=== PATIENT | male | born 1975 | race Caucasian/White ===

== ENCOUNTER 2024-11-25 06:29 | Inpatient (IN) | payer MEDICAID, OTHER ==
[~2024-11-25] VITALS: Ht 175.3 cm; Wt 69.9 kg
--- NOTE | 2024-11-25 06:54 | ECG ---
[facility] Test Date: 2024-11-25 Test Time: 06:47:31 Pat Name: LYNDSAY PABON Department: ED Room: Gender: M Accounting Director: MALGORZATA : 1975 Requested By: DAYANARA JONAS Order Number: [id number] Reading MD: Measurements Intervals [place] Rate: 92 P: 81 GA: 128 QRS: 59 QRSD: 102 T: 64 QT: 359 QTc: 445 Interpretive Statements Sinus rhythm Please click the below link to view image of tracing.
--- NOTE | 2024-11-25 07:18 | ED.PDOC ---
Musculoskeletal HPI Comments This is a 49 year old male JENNI presenting to the ED with chief complaint of bilateral leg pain. Patient reports that he has been experiencing pain to his bilateral legs for the past 7 years, taking Gabapentin and [place] for pain management, but has been out of [place] for a week. Patient relays that he had passed out at home, prompting him to call 911. Patient states that he has history of DM, but does not take any medication for it. Patient admits to methamphetamine use a week ago. Patient denies any numbness, weakness, fever, chills, SOB, or chest pain. Chief Complaint: Lower Extremity Time Seen by MD: 07:15 Reviewed Notes: Nurses Notes, Medications, Allergies Allergies: Coded Allergies: NO KNOWN ALLERGIES (Unverified , 11/25/24) Information Source: Patient Mode of Arrival: EMS Location: Bilateral Extremity Location: Leg Timing: Other (7 years) Prehospital treatment: None Severity: Moderate Able to Move Extremity: Yes Bear Weight: Limited Pain: Moderate Mechanism: Spontaneous Circumstances: Spontaneous Onset of Symptoms: Spontaneous Symptoms: Swelling, Pain DVT Risk Factors: NONE Last Tetanus: Unknown Past Medical History PAST MEDICAL HISTORY: DM, HTN Past Medical History (Other): Chronic leg pain Surgical History: Denies all surgeries Family History Family History: Reviewed,noncontributory to illness Social History Smoker: Non-Smoker Alcohol: Denies ETOH Use Drugs: Marijuana, Methamphetamine Lives In: Home Constitutional: denies: chills, diaphoresis, fatigue, fever, malaise, sweats, weakness, others EENTM: denies: blurred vision, double vision, ear bleeding, ear discharge, ear drainage, ear pain, ear ringing, eye pain, eye redness, hearing loss, mouth [place] n, mouth swelling, nasal discharge, nose bleeding, nose congestion, nose pain, photophobia, tearing, throat pain, throat swelling, voice changes, others Respiratory: denies: cough, hemoptysis, orthopnea, SOB at rest, shortness of breath, SOB with excertion, stridor, wheezing, others Cardiovascular: denies: chest pain, dizzy spells, diaphoresis, Dyspnea on exertion, edema, irregular heart beat, left arm pain, lightheadedness, palpitations, PND, syncope, others Gastrointestinal: denies: abdomen distended, abdominal pain, blood streaked bowels, constipated, diarrhea, dysphagia, difficulty swallowing, hematemesis, melena, nausea, poor appetite, poor fluid intake, rectal bleeding, rectal pain, vomiting, others Genitourinary: denies: burning, dysuria, flank pain, frequency, hematuria, incontinence, penile discharge, penile sore, pain, testicle pain, testicle swelling, urgency, others Neurological: denies: dizziness, fainting, headache, left sided numbness, left sided weakness, numbness, paresthesia, pre-existing deficit, right sided numbness, right sided weakness, seizure, speech problems, tingling, tremors, weakness, others Musculoskeletal: reports: others (Bilateral leg pain); denies: back pain, gout, joint pain, joint swelling, muscle pain, muscle stiffness, neck pain Integumetry: reports: others (dry cracked skin to bilateral feet and legs); denies: bruises, change in color, change in hair/nails, dryness, laceration, lesions, lumps, rash, wounds Allergic/Immunocompromised: denies: Difficulty Healing, Frequent Infections, Hives, Itching, others Hematologic/Lymphatic: denies: anemia, blood clots, easy bleeding, easy bruising, swollen glands, others Endocrine: denies: excessive hunger, excessive sweating, excessive thirst, excessive urination, flushing, intolerance to cold, intolerance to heat, unexplained weight gain, unexplained weight loss, others Psychiatric: denies: anxiety, bipolar disorder, depression, hopeless, panic disorder, schizophrenia, sleepless, suicidal, others All Other Systems: Reviewed and Negative Physical Exam General Appearance: No Apparent Distress, Normal HEENT: Normal ENT Inspection, Pharynx Normal, TMs Normal Neck: Full Range of Motion, Non-Tender, Normal, Normal Inspection Respiratory: Chest Non-Tender, Lungs Clear, No Accessory Muscle Use, No Respiratory Distress, Normal Breath Sounds Cardiovascular: No Edema, No JVD, No Murmur, No Gallop, Normal Peripheral Pulses, Regular Rate/Rhythm Breast Exam: Deferred Gastrointestinal: No Organomegaly, Non Tender, No Pulsatile Mass, Normal Bowel Sounds, Soft Genitalia: Deferred Pelvic: Deferred Rectal: Deferred Extremities: No calf tenderness, Normal capillary refill, Normal range of motion, Other (2+ pitting edema with dry, cracked skin to the bilateral feet and legs) Musculoskeletal : Apperance: Normal Neurologic: Alert, glueline worker II-XII nml as Tested, No Motor Deficits, Normal Affect, Normal Mood, No Sensory Deficits Cerebellar Function: Normal Reflexes: Normal Skin: Dry, Normal Color, Warm Lymphatic: No Adenopathy Was a procedure done? Was a procedure done?: No Differential Diagnosis EXT Differential Diagnosis: Cellulitis, CHF, Deep Vein Thrombosis, Bursitis X-Ray, Labs, Meds, VS Vital Signs Date Time Temp Pulse Resp B/P (MAP) Pulse Ox O2 Delivery O2 Flow Rate FiO2 11/25/24 12:00 77 18 127/74 (91) 94 11/25/24 10:00 79 14 120/66 (84) 93 11/25/24 09:00 59 16 124/5 (44) 97 11/25/24 08:15 98.0 73 16 156/66 (96) 93 98.0 11/25/24 08:15 Room Air* 0 21 11/25/24 06:47 92 11/25/24 06:29 98.1 101 14 148/89 (108) 100 98.1 Lab Test 11/25/24 12:40 11/25/24 08:00 11/25/24 07:41 Range/Units Urine Opiates Screen Pos NEGATIVE Urine Fentanyl Screen Neg NEGATIVE Urine Barbiturates Screen Neg NEGATIVE Urine Phencyclidine Screen Neg NEGATIVE Urine Amphetamines Screen Pos NEGATIVE Urine Benzodiazepines Screen Neg NEGATIVE Urine Cocaine Screen Neg NEGATIVE Urine Cannabinoids Screen Pos NEGATIVE Urine Color Light-yellow Yellow Urine Clarity Clear Clear Urine pH 6.5 5.0-9.0 Urine Specific [place] 1.012 1.001-1.035 Urine Protein Negative Negative Urine Ketones Negative Negative Urine Blood Negative Negative /uL Urine Nitrite Negative Negative Urine Bilirubin Negative Negative Urine Urobilinogen Normal Negative mg/dL Urine Leukocyte Esterase Negative Negative /uL Urine RBC None seen 0 - 3 /hpf Urine Microscopic WBC < 1 0-3 /HPF Urine Squamous Epithelial Cells None seen <5 /hpf Urine Bacteria None seen None Seen /hpf Urine Glucose Normal Normal mg/dL White Blood Count 6.8 4.4-10.8 10^3/uL Red Blood Count 4.35 L 4.5-5.90 10^6/uL Hemoglobin 13.9 13.5-17.5 g/dL Hematocrit 41.1 41.0-53.0 % Mean Corpuscular Volume 94.6 80.0-100.0 fL Mean Corpuscular Hemoglobin 32.0 28.0-32.0 pg Mean Corpuscular Hemoglobin Concent 33.8 32.0-36.0 g/dL Red Cell Distribution Width 13.0 11.8-14.3 % Platelet Count 265 140-450 10^3/uL Mean Platelet Volume 8.1 6.9-10.8 fL Neutrophils (%) (Auto) 73.0 37.0-80.0 % Lymphocytes (%) (Auto) 17.7 10.0-50.0 % Monocytes (%) (Auto) 8.0 0.0-12.0 % Eosinophils (%) (Auto) 0.6 0.0-7.0 % Basophils (%) (Auto) 0.7 0.0-2.0 % Neutrophils # (Auto) 5.0 1.6-8.6 10 ^3/uL Lymphocytes # (Auto) 1.2 0.4-5.4 10 ^3/uL Monocytes # (Auto) 0.5 0-1.3 10 ^3/uL Eosinophils # (Auto) 0 0-0.8 10 ^3/uL Basophils # (Auto) 0 0-0.2 10 ^3/uL Nucleated Red Blood Cells 0.1 % D-Dimer, Quantitative 0.33 0.0-0.49 mg/L FEU Sodium Level 140 136-145 mmol/L Potassium Level 4.1 3.5-5.1 mmol/L Chloride Level 105 98-107 mmol/L Carbon Dioxide Level 28 20-31 mmol/L Anion Gap 7 5-15 Blood Urea Nitrogen 14 9-23 mg/dL Creatinine 0.78 0.700-1.30 mg/dL Glomerular Filtration Rate Calc 109 >90 mL/min BUN/Creatinine Ratio 17.9 10.0-20.0 Serum Glucose 92 74-106 mg/dL Calcium Level 9.4 8.7-10.4 mg/dL Total Bilirubin 0.2 0.2-1.0 mg/dL Aspartate Amino Transferase (AST) 32 13-40 U/L Alanine Aminotransferase (ALT) 21 7-40 U/L Alkaline Phosphatase 73 46-116 U/L B-Type Natriuretic Peptide 11.21 0-100 pg/mL Total Protein 6.5 5.7-8.2 g/dL Albumin 4.2 3.2-4.8 g/dL X-Ray, Labs, Meds, VS Comment This 49-year-old male presents secondary to a several year history of bilateral lower extremity pain. The patient's physical exam today was significant for dry cracked skin to bilateral feet and legs. His labs were benign. Ultrasound showed no DVT. However, he is also noted to be positive for methamphetamine. I will discharge the patient home with a prescription for clotrimazole topical ointment for his feet and legs. He is asked to follow up with PCP in next 1 2 days return to the ER for any new/worse/worsening symptoms. which she is consistent with the patient's Time of 1ST Reevaluation: 08:13 Reevaluation 1ST: Unchanged Patient Education/Counseling: Diagnosis, Treatment Family Education/Counseling: No Family Present Departure 1 Departure Time of Disposition: 13:21 Impression: Primary Impression: Tinea pedis Additional Impressions: Chronic leg pain Methamphetamine use Disposition: 01 HOME / SELF CARE / HOMELESS Condition: Good Discharged With: Self Critical Care Note Critical Care Time?: No Stability Stability form required: No Heart Score Heart Score: Heart Score Response (Comments) Value History N/A 0 EKG N/A 0 Age N/A 0 Risk Factors N/A 0 Troponin N/A 0 Total 0 I personally scribed for DAYANARA JONAS MD ([email or web address]) on 11/25/24 at 07:18. Electronically submitted by Shankar Hale ([email or web address]). DAYANARA JONAS MD Nov 25, 2024 07:18
[2024-11-25 08:36] LABS: Hematocrit 41.1 % (41.0-53.0); Hemoglobin 13.9 g/dL (13.5-17.5); Mean Corpuscular Hemoglobin 32.0 pg (28.0-32.0); Mean Corpuscular Volume 94.6 fL (80.0-100.0); Nucleated Red Blood Cells % 0.1 %
[2024-11-25 09:00] LABS: Alanine Aminotransferase 21 U/L (7-40); Albumin 4.2 g/dL (3.2-4.8); Alkaline Phosphatase 73 U/L (46-116); Anion Gap 7 (5-15); BUN/Creatinine Ratio 17.9 (10.0-20.0); Blood Urea Nitrogen 14 mg/dL (9-23); Calcium 9.4 mg/dL (8.7-10.4); Carbon Dioxide 28 mmol/L (20-31); Chloride 105 mmol/L (98-107); Glucose 92 mg/dL (74-106); Potassium 4.1 mmol/L (3.5-5.1); Sodium 140 mmol/L (136-145); Total Protein 6.5 g/dL (5.7-8.2)
[2024-11-25 09:01] LABS: Bilirubin, Total 0.2 mg/dL (0.2-1.0)
[2024-11-25 09:49] LABS: Urine Protein, UAD Negative (Negative)
--- NOTE | 2024-11-25 12:40 | DVH ---
US BiLat Low Ext Art Duplex HISTORY: Edema and pain to BLE COMPARISON: None TECHNIQUE: The bilateral lower extremity arteries were examined with grayscale imaging, color Doppler , and spectral waveform analysis. FINDINGS: The bilateral lower extremity arteries are normal in caliber with no significant plaque or aneurysm. The following arterial peak systolic velocities (Cm/sec) and waveforms were obtained: Right Common femoral artery: multiphasic; 171 Cm/s Profunda femoris artery: multiphasic; 132 Cm/s Upper SFA: multiphasic; 150 Cm/s Mid SFA: multiphasic; 161 Cm/s Low SFA: multiphasic; 176 Cm/s Popliteal artery: monophasic; 135 Cm/s Posterior tibial artery: monophasic; 75 Cm/s Dorsalis pedis artery: monophasic; 66 Cm/s CHANCE: Left Common femoral artery: monophasic; 175 Cm/s Profunda femoris artery: multiphasic; 111 Cm/s Upper SFA: monophasic; 145 Cm/s Mid SFA: monophasic; 156 Cm/s Low SFA: monophasic; 173 Cm/s Popliteal artery: monophasic; 142 Cm/s Posterior tibial artery: monophasic; 83 Cm/s Dorsalis pedis artery: monophasic; 93 Cm/s CHANCE: IMPRESSION: Patent bilateral lower extremity arteries from the common femoral arteries to the distal ankle arteri es without significant stenosis and no occlusions.
[2024-11-25 12:58] LABS: Amphetamine Screen, Urine Pos (NEGATIVE); Barbiturate Scree,Urine Neg (NEGATIVE); Benzodiazephine Screen, Urine Neg (NEGATIVE); Cannabinoid Screen, Urine Pos (NEGATIVE); Cocaine Screen, Urine Neg (NEGATIVE); Opiate Scree,Urine Pos (NEGATIVE); Phencyclidine Screen, Urine Neg (NEGATIVE)
[2024-11-25] MEDS ORDERED: CLOT-32 TOP (13:23)
--- NOTE | 2024-11-25 18:52 | ED.PDOC ---
Departure 1 Departure Time of Disposition: 18:51 (Today ambulate patient however patient was unable to ambulate. We will admit patient for further workup and expert consultation) Impression: Primary Impression: Unable to ambulate Additional Impressions: Tinea pedis Qualified Codes: B35.3 - Tinea pedis Methamphetamine use Chronic leg pain Qualified Codes: M79.604 - Pain in right leg; M79.605 - Pain in left leg; G89.29 - Other chronic pain Disposition: ADMITTED INPATIENT Admit to: Med Surg Condition: Serious Additional Instructions: Discharge Note: Continue on your medications. Drink plenty of fluids. Follow up with your primary Dr. Take your prescriptions as ordered. If your condition becomes worse call and follow up with your primary Dr. for instructions or return to the ER if needed. Thank you for visiting [facility]. e-Prescriptions Clotrimazole (Lotrimin Af) 1 % Cre 1 APPLIC TOP BID, #24 GRAMS 1 Refill Prov: DAYANARA JONAS MD 11/25/24 Discharged With: STEFANI Velasquez MD Nov 25, 2024 18:52
[2024-11-25] MEDS ORDERED: ACETAMINOPHEN 325 MG TAB PO PRN (21:15)
[2024-11-25] MEDS: SODIUM CHLORIDE 0.9% 1,000 ML IV ONE (21:15)
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
[2024-11-25 22:52] LABS: Hematocrit 43.0 % (41.0-53.0); Hemoglobin 14.5 g/dL (13.5-17.5); Mean Corpuscular Hemoglobin 32.1 pg (28.0-32.0); Mean Corpuscular Volume 94.7 fL (80.0-100.0); Nucleated Red Blood Cells % 0.0 %
[2024-11-25 23:11] LABS: Alanine Aminotransferase 21 U/L (7-40); Albumin 4.2 g/dL (3.2-4.8); Alkaline Phosphatase 73 U/L (46-116); Anion Gap 5 (5-15); BUN/Creatinine Ratio 14.1 (10.0-20.0); Blood Urea Nitrogen 14 mg/dL (9-23); Calcium 9.6 mg/dL (8.7-10.4); Carbon Dioxide 31 mmol/L (20-31); Glucose 88 mg/dL (74-106); Magnesium 2.1 mg/dL (1.6-2.6); Potassium 3.9 mmol/L (3.5-5.1); Sodium 143 mmol/L (136-145); Total Protein 6.5 g/dL (5.7-8.2)
[2024-11-25 23:14] LABS: Bilirubin, Total 0.2 mg/dL (0.2-1.0); Chloride 107 mmol/L (98-107)
[2024-11-26] VITALS (9 sets, daily range): BP systolic 101–121; BP diastolic 64–81; PULSE 62–102; RESP 14–18; TEMP 97.1–99.1; O2SAT 95–100
--- NOTE | 2024-11-26 00:01 | DVH ---
CT BRAIN WITHOUT CONTRAST HISTORY: RULE OUT CVA TECHNIQUE: Axial scans were obtained from the skull base through the vertex without contrast. Sagitta l and coronal reformats were generated. One or more of the following radiation dose reduction techniq ues were used for this examination: automated exposure control, adjustment of the mA and/or kV accord ing to patient size, use of iterative reconstruction technique. COMPARISON: None FINDINGS: No acute intracranial hemorrhage or evidence of large vessel territorial infarction identified at [facility] s time. No midline shift. The basilar cisterns are patent. Atrophic changes of the cerebellum. The visualized paranasal sinuses and mastoid air cells are clear. No grossly displaced calvarial abno rmalities identified. IMPRESSION: No acute intracranial hemorrhage or evidence of large vessel territorial infarction identified at thi s time. If there is persistent clinical concern, MRI is recommended to further evaluate. Atrophic changes of the cerebellum.
[2024-11-26] MEDS: THIAMINE HCL 100 MG TAB PO ONE (00:21)
[2024-11-26] MEDS: FOLIC ACID 1 MG TAB PO ONE (00:21)
[2024-11-26] MEDS: GABAPENTIN 300 MG CAP PO SCH ×2 (00:21→18:38)
[2024-11-26] MEDS ORDERED: GABA-1250 PO (01:27)
[2024-11-26] MEDS ORDERED: HYDR-4798 PO (01:27)
[2024-11-26 01:45] LABS: INR 0.99 (0.9-1.15); Partial Thromboplastin Time 26.9 SEC (24.5-34.5); Prothrombin Time 10.5 sec (9.3-11.8)
[2024-11-26] MEDS: HYDROcodone-ACET 5/325MG TAB PO PRN (04:08)
[2024-11-26] MEDS: SODIUM CHLORIDE 0.9% 1,000 ML IV SCH (04:10)
[2024-11-26] MEDS: FAMOTIDINE 20 MG TAB PO SCH (09:59)
[2024-11-26] MEDS: ENOXAPARIN SOD 40 MG/0.4 ML SYRINGE SC SCH (09:59)
[2024-11-26] MEDS: EUCERIN CREAM 2OZ TUBE TOP SCH (10:00)
[2024-11-26] MEDS ORDERED: PANTOPRAZOLE 40 MG/10 ML VIAL INJ IV SCH (10:00)
--- NOTE | 2024-11-26 13:48 | DVH ---
CHEST RADIOGRAPH Indication: Evaluate for cardiopulmonary disease Technique: Frontal and lateral view of the chest was obtained Comparison: None FINDINGS: Lines and Tubes: None Lungs: Clear Pleura: No effusion. No pneumothorax. Cardiomediastinal contours: Unremarkable Bones: Age-indeterminate fractures of the right 4th and 5th posterolateral ribs. Old fracture of the right 10th lateral rib. IMPRESSION: No evidence of acute cardiopulmonary disease. Right 4th and 5th posterolateral rib fractures are age-indeterminate but favored to be chronic.
--- NOTE | 2024-11-26 14:41 | DVHPNRES ---
Progress Note Date Seen: Nov 26, 2024 Resident Creating Document: MIGUEL ANGEL LAINEZ RESIDENT Medical Necessity Reason Pt with a Central, PICC or Fol: No Subjective Review of Systems Mr. Barrett is a 49-year-old male with a history of untreated type 2 diabetes mellitus, peripheral polyneuropathy, hypertension presented to the emergency department after fall at home. The patient reports sudden inability to walk which is getting worsen from past few months due to progressive bilateral leg pain and generalized weakness. He described a burning sensation in his feet and thighs, worsening over time. This morning, he attempted to walk back to the couch and collapsed to the floor, unable to get up. He endorses bilateral leg pain, weakness in both arms and legs, blurred and double vision, poor appetite, and chronic emotional distress. Patient reports a longstanding history of progressive lower extremity dysfunction, including loss of sensation in the feet and inability to walk without assistance. He reported chronic pain throughout the body, severe bilateral leg scaling, and burning sensation in extremities. Patient was seen and examined the bedside. He is alert oriented x3. Complaint of generalized weakness, bilateral leg pain and burning sensation in both feet. No other active complaint. Constitutional: No: Fever, Chills, Sweats, Weakness, Malaise, Other Eyes: Blurred vision, No: Pain, Conjunctivae inflammation, Eyelid inflammation, Other, Redness ENT: No: Ear pain, Ear discharge, Nose pain, Nose discharge, Nose congestion, Mouth pain, Mouth swelling, Throat pain, Throat swelling, Other Respiratory: Shortness of breath, improving No: Cough, Dry,Wheezing, Hemoptysis, Pleuritic Pain, Sputum, Wheezing, Other Cardiovascular: No: Chest Pain, Palpitations, Orthopnea, Paroxysmal Noc. Dyspnea, Edema, Lt Headedness, Other Gastrointestinal: No: Nausea, Vomiting, Abdominal Pain, Diarrhea, Constipation, Melena, Hematochezia, Other Skin : Scaly lesions in both legs. Musculoskeletal: Leg pain, foot pain No: other, neck pain, shoulder pain, arm pain, back pain, hand pain. Neurological:; No: Weakness, Numbness, Incoordination, Change in speech, Confusion, Seizures. Objective vital signs Vital Sign Date Time Temp Pulse Resp B/P (MAP) Pulse Ox O2 Delivery O2 Flow Rate FiO2 11/26/24 09:00 97.9 62 18 101/64 (76) 97 97.9 7/20/25 08:00 Room Air* 0 21 Total Intake and Output 11/25/24 11/25/24 11/26/24 15:00 23:00 07:00 Intake Total 340 ml Output Total 400 ml 350 ml Balance -400 ml -10 ml medications Current Medications Medications Dose Ordered Sig/Rosaura Route Start Time Stop Time Status Last Admin Dose Admin Acetaminophen 650 mg Q6HP PRN PO 11/25/24 21:15 Acetaminophen/ Hydrocodone Bitart 1 tab Q4HP PRN PO 11/25/24 21:15 11/26/24 09:59 1 TAB Enoxaparin Sodium 40 mg DAILY SC 11/26/24 10:00 11/26/24 09:59 40 MG Multi-Ingredient Ointment 1 applic DAILY TOP 11/26/24 10:00 11/26/24 10:00 1 APPLIC Gabapentin 300 mg HS PO 11/25/24 22:00 11/26/24 00:21 300 MG Famotidine 20 mg Q12HR PO 11/26/24 10:00 11/26/24 09:59 20 MG Examination Physical examination: General Appearance: Alert, Oriented X3, Cooperative, No acute distress HEENT: Blurred vision, Atraumatic, PERRLA, EOMI, Mucous membrane moist/pink Respiratory: Clear to auscultation, Normal air movement Cardiovascular: Regular rate, Normal S1, Normal S2, No murmurs, no chest wall tenderness Abdominal: Normal bowel sounds, Soft, No tenderness, No hepatospenomegaly, No masses Extremities: No clubbing, No cyanosis, No edema, Normal pulses. Skin: Bilateral scaly lesions in legs, No rashes, No breakdown. Neuro: Bed bound, needs maximum assistance with walker , Normal speech, Strength at 5/5 X4 ext, Normal tone, Sensation intact, Cranial nerves 3-12 NL, Reflexes 2+ Psych/Mental Status: Mental status NL, Mood NL laboratory and microbiology Laboratory Tests 11/25/24 22:25 Test 11/25/24 22:25 Range/Units Serum Glucose 88 74-106 mg/dL Labs and/or images reviewed: Labs reviewed by me, Image(s) reviewed by me Problem List/Assessment/Plan Problem List/Assessment/Plan Assessment and plan: Generalized weakness with falls and inability to ambulate Severe polyneuropathy with functional impairment Chronic bilateral lower extremity dermatitis with scaling due to chronic dermatitis or neuropathic changes Ruled out peripheral vascular disease Blurred vision likely secondary to diabetic retinopathy. Possible Cervical radiculopathy, unspecified and unspecified disc disease Type 2 diabetes mellitus , HbA1C 5.8 - Duplex arterial scan showed Patent bilateral lower extremity arteries from the common femoral arteries to the distal ankle arteries without significant stenosis and no occlusions - Gabapentin 300 mg PO TID History of hypertension - Hold antihypertensive as blood pressure is within the normal range Polysubstance use disorder Nicotine dependence - UDS is positive for amphetamine, opioids and marijuana - counseled patient regarding cessation of smoking,drugs and rehabilitation for more than 20 minutes. Severe protein calorie malnutrition with functional decline, cachexia, poor oral intake and weight loss, BMI 21.6 kg/m2 - counseled patient regarding healthy diet and lifestyle modification. Goal of care discussed with the patient for more than 20 minutes full code Plan discussed with Dr. Em Plan discussed with: Patient, Other (RN) My Orders My Orders Orders - MIGUEL ANGEL LAINEZ Procedure Category Date Status Time Famotidine Tablet PHA 11/26/24 In Process (Pepcid Tablet) 10:00 Date of Service: Nov 26, 2024 Billing Provider: HUGO EM MD Common Visit Codes: [id number] INP/OBS CARE(HIGH) MIGUEL ANGEL LAINEZ Nov 26, 2024 14:41 HUGO EM MD Nov 26, 2024 16:18
[2024-11-27 01:00] VITALS: BP 99/60; PULSE 69; RESP 17; TEMP 98.2; O2SAT 97
[2024-11-27 05:00] VITALS: BP 93/58; PULSE 68; RESP 18; TEMP 98.6; O2SAT 97
[2024-11-27 08:00] VITALS: PULSE 89; RESP 18
[2024-11-27 09:00] VITALS: BP_SYST 104; BP_SYST 99; BP_DIAS 67; BP_DIAS 78; PULSE 73; PULSE 91; RESP 18; TEMP 97.8; TEMP 97.9; O2SAT 96; O2SAT 98
[2024-11-27 10:13] LABS: Hepatitis B Surface Antigen Negative (Negative)
[2024-11-27 10:31] LABS: Hepatitis C Antibody Negative (Negative)
[2024-11-27 13:00] VITALS: BP 125/83; PULSE 66; RESP 16; TEMP 97.9; O2SAT 97
--- NOTE | 2024-11-27 14:30 | DVHDSRES ---
Discharge Summary Date of Admission Resident Creating Document: WM PERKINS RESIDENT Nov 25, 2024 at 21:07 Date of Discharge: Nov 27, 2024 Admitting Diagnosis Generalized weakness with falls and inability to ambulate Labs/Diagnostic Data: Laboratory Results Test 11/26/24 15:55 11/26/24 06:19 11/25/24 22:25 11/25/24 12:40 HIV (1&2) Antibody Negative (Negative) Hepatitis B Surface Antigen Negative (Negative) Hepatitis C Antibody Negative (Negative) White Blood Count 7.3 10^3/uL (4.4-10.8) Red Blood Count 4.54 10^6/uL (4.5-5.90) Hemoglobin 14.5 g/dL (13.5-17.5) Hematocrit 43.0 % (41.0-53.0) Mean Corpuscular Volume 94.7 fL (80.0-100.0) Mean Corpuscular Hemoglobin 32.1 pg (28.0-32.0) Mean Corpuscular Hemoglobin Concent 33.9 g/dL (32.0-36.0) Red Cell Distribution Width 13.0 % (11.8-14.3) Platelet Count 268 10^3/uL (140-450) Mean Platelet Volume 7.8 fL (6.9-10.8) Neutrophils (%) (Auto) 62.1 % (37.0-80.0) Lymphocytes (%) (Auto) 25.5 % (10.0-50.0) Monocytes (%) (Auto) 10.0 % (0.0-12.0) Eosinophils (%) (Auto) 1.8 % (0.0-7.0) Basophils (%) (Auto) 0.6 % (0.0-2.0) Neutrophils # (Auto) 4.5 10 ^3/uL (1.6-8.6) Lymphocytes # (Auto) 1.9 10 ^3/uL (0.4-5.4) Monocytes # (Auto) 0.7 10 ^3/uL (0-1.3) Eosinophils # (Auto) 0.1 10 ^3/uL (0-0.8) Basophils # (Auto) 0 10 ^3/uL (0-0.2) Nucleated Red Blood Cells 0.0 % Erythrocyte Sedimentation Rate 5 mm/hr (0-20) Prothrombin Time 10.5 sec (9.3-11.8) Prothrombin Time INR 0.99 (0.9-1.15) Activated Partial Thromboplast Time 26.9 SEC (24.5-34.5) Sodium Level 143 mmol/L (136-145) Potassium Level 3.9 mmol/L (3.5-5.1) Chloride Level 107 mmol/L (98-107) Carbon Dioxide Level 31 mmol/L (20-31) Anion Gap 5 (5-15) Blood Urea Nitrogen 14 mg/dL (9-23) Creatinine 0.99 mg/dL (0.700-1.30) Glomerular Filtration Rate Calc 93 mL/min (>90) BUN/Creatinine Ratio 14.1 (10.0-20.0) Serum Glucose 88 mg/dL (74-106) Hemoglobin A1c 5.8 % A1C (<5.7) Calcium Level 9.6 mg/dL (8.7-10.4) Phosphorus Level 2.6 mg/dL (2.4-5.1) Magnesium Level 2.1 mg/dL (1.6-2.6) Total Bilirubin 0.2 mg/dL (0.2-1.0) Aspartate Amino Transferase (AST) 31 U/L (13-40) Alanine Aminotransferase (ALT) 21 U/L (7-40) Alkaline Phosphatase 73 U/L (46-116) C-Reactive Protein High Sensitivity 0.14 mg/dL (<1.0) Total Protein 6.5 g/dL (5.7-8.2) Albumin 4.2 g/dL (3.2-4.8) Vitamin B12 Level 249 pg/mL (211-911) Folic Acid 19.55 ng/mL (>5.38) Thyroid Stimulating Hormone (TSH) 0.63 uIU/mL (0.55-4.78) Urine Opiates Screen Pos (NEGATIVE) Urine Fentanyl Screen Neg (NEGATIVE) Urine Barbiturates Screen Neg (NEGATIVE) Urine Phencyclidine Screen Neg (NEGATIVE) Urine Amphetamines Screen Pos (NEGATIVE) Urine Benzodiazepines Screen Neg (NEGATIVE) Urine Cocaine Screen Neg (NEGATIVE) Urine Cannabinoids Screen Pos (NEGATIVE) Test 11/25/24 08:00 11/25/24 07:41 Urine Color Light-yellow (Yellow) Urine Clarity Clear (Clear) Urine pH 6.5 (5.0-9.0) Urine Specific [place] 1.012 (1.001-1.035) Urine Protein Negative (Negative) Urine Ketones Negative (Negative) Urine Blood Negative /uL (Negative) Urine Nitrite Negative (Negative) Urine Bilirubin Negative (Negative) Urine Urobilinogen Normal mg/dL (Negative) Urine Leukocyte Esterase Negative /uL (Negative) Urine RBC None seen /hpf (0 - 3) Urine Microscopic WBC < 1 /HPF (0-3) Urine Squamous Epithelial Cells None seen /hpf (<5) Urine Bacteria None seen /hpf (None Seen) Urine Glucose Normal mg/dL (Normal) D-Dimer, Quantitative 0.33 mg/L FEU (0.0-0.49) B-Type Natriuretic Peptide 11.21 pg/mL (0-100) Other Laboratory Tests 11/25/24 22:25 Brief Hx & Hospital Course: Mr. Barrett is a 49-year-old male with a history of untreated type 2 diabetes mellitus, peripheral polyneuropathy, hypertension presented to the emergency department after fall at home. The patient reports sudden inability to walk which is getting worsen from past few months due to progressive bilateral leg pain and generalized weakness. He described a burning sensation in his feet and thighs, worsening over time. This morning, he attempted to walk back to the couch and collapsed to the floor, unable to get up. He endorses bilateral leg pain, weakness in both arms and legs, blurred and double vision, poor appetite, and chronic emotional distress. Patient reports a longstanding history of progressive lower extremity dysfunction, including loss of sensation in the feet and inability to walk without assistance. He reported chronic pain throughout the body, severe bilateral leg scaling, and burning sensation in extremities. [facility] Hospital course: The patient came with generalized weakness with falls and inability to ambulate, severe polyneuropathy with functional impairment, chronic bilateral lower extremity dermatitis with scaling due to chronic dermatitis or neuropathic changes, ruled out peripheral vascular disease, blurred vision likely secondary to diabetic retinopathy goals. he possibly has cervical radiculopathy, unspecified disc disease. CT brain without contrast shows No acute intracranial hemorrhage or evidence of large vessel territorial infarction identified at this time. If there is persistent clinical concern, MRI is recommended to further evaluate, Atrophic changes of the cerebellum. Chest x-ray shows No evidence of acute cardiopulmonary disease, Right 4th and 5th posterolateral rib fractures are age-indeterminate but favored to be chronic. Duplex arterial scan shows Patent bilateral lower extremity arteries from the common femoral arteries to the distal ankle arteries without significant stenosis and no occlusions. He has type 2 diabetes mellitus with HbA1c 5.8. Patient is on gabapentin 300 mg p.o. t.i.d.. He has history of hypertension, but antihypertensive medication was held due to normal blood pressure. He has polysubstance use disorder and nicotine dependence urine drug screen is positive for amphetamine, opiates, marijuana. Patient was counseled on cessation of smoking, drugs, rehabilitation for more than 20 minutes. He has severe protein calorie malnutrition with functional decline, cachexia, poor oral intake and weight loss, BMI 21.6. Patient is stable for discharge and and communicates understanding of his discharge plan, and agrees to follow-up with discharge Clinic in 1-2 weeks. Constitutional: No: Fever, Chills, Sweats, Weakness, Malaise, Other Eyes: Blurred vision, No: Pain, Conjunctivae inflammation, Eyelid inflammation, Other, Redness ENT: No: Ear pain, Ear discharge, Nose pain, Nose discharge, Nose congestion, Mouth pain, Mouth swelling, Throat pain, Throat swelling, Other Respiratory: Shortness of breath, improving No: Cough, Dry, Wheezing, Hemoptysis, Pleuritic Pain, Sputum, Wheezing, Other Cardiovascular: No: Chest Pain, Palpitations, Orthopnea, Paroxysmal Noc. Dyspnea, Edema, Lt Headedness, Other Gastrointestinal: No: Nausea, Vomiting, Abdominal Pain, Diarrhea, Constipation, Melena, Hematochezia, Other Skin : Scaly lesions in both legs. Musculoskeletal: Leg pain, foot pain No: other, neck pain, shoulder pain, arm pain, back pain, hand pain. Neurological:; No: Weakness, Numbness, Incoordination, Change in speech, Confusion, Seizures. Operations or Procedures CHEST RADIOGRAPH Indication: Evaluate for cardiopulmonary disease Technique: Frontal and lateral view of the chest was obtained Comparison: None FINDINGS: Lines and Tubes: None Lungs: Clear Pleura: No effusion. No pneumothorax. Cardiomediastinal contours: Unremarkable Bones: Age-indeterminate fractures of the right 4th and 5th posterolateral ribs. Old fracture of the right 10th lateral rib. IMPRESSION: No evidence of acute cardiopulmonary disease. Right 4th and 5th posterolateral rib fractures are age-indeterminate but favored to be chronic. - CT BRAIN WITHOUT CONTRAST HISTORY: RULE OUT CVA TECHNIQUE: Axial scans were obtained from the skull base through the vertex without contrast. Sagittal and coronal reformats were generated. One or more of the following radiation dose reduction techniques were used for this examination: automated exposure control, adjustment of the mA and/or kV according to patient size, use of iterative reconstruction technique. COMPARISON: None FINDINGS: No acute intracranial hemorrhage or evidence of large vessel territorial infarction identified at this time. No midline shift. The basilar cisterns are patent. Atrophic changes of the cerebellum. The visualized paranasal sinuses and mastoid air cells are clear. No grossly displaced calvarial abnormalities identified. IMPRESSION: No acute intracranial hemorrhage or evidence of large vessel territorial infarction identified at this time. If there is persistent clinical concern, MRI is recommended to further evaluate. Atrophic changes of the cerebellum. ----- US BiLat Low Ext Art Duplex HISTORY: Edema and pain to BLE COMPARISON: None TECHNIQUE: The bilateral lower extremity arteries were examined with grayscale imaging, color Doppler, and spectral waveform analysis. FINDINGS: The bilateral lower extremity arteries are normal in caliber with no significant plaque or aneurysm. The following arterial peak systolic velocities (Cm/sec) and waveforms were obtained: Right Common femoral artery: multiphasic; 171 Cm/s Profunda femoris artery: multiphasic; 132 Cm/s Upper SFA: multiphasic; 150 Cm/s Mid SFA: multiphasic; 161 Cm/s Low SFA: multiphasic; 176 Cm/s Popliteal artery: monophasic; 135 Cm/s Posterior tibial artery: monophasic; 75 Cm/s Dorsalis pedis artery: monophasic; 66 Cm/s CHANCE: Left Common femoral artery: monophasic; 175 Cm/s Profunda femoris artery: multiphasic; 111 Cm/s Upper SFA: monophasic; 145 Cm/s Mid SFA: monophasic; 156 Cm/s Low SFA: monophasic; 173 Cm/s Popliteal artery: monophasic; 142 Cm/s Posterior tibial artery: monophasic; 83 Cm/s Dorsalis pedis artery: monophasic; 93 Cm/s CHANCE: IMPRESSION: Patent bilateral lower extremity arteries from the common femoral arteries to the distal ankle arteries without significant stenosis and no occlusions. Condition at Discharge: Stable Final Diagnosis/Problems List Progressive Generalized weakness due to polyneuropathy Severe polyneuropathy with functional impairment due to diabetic neuropathy Chronic bilateral lower extremity dermatitis with scaling due to chronic dermatitis or neuropathic changes Ruled out peripheral vascular disease Blurred vision likely secondary to diabetic retinopathy. Possible Cervical radiculopathy, unspecified disc disease Type 2 diabetes mellitus , HbA1C 5.8 History of hypertension Polysubstance use disorder Nicotine dependence Severe protein calorie malnutrition with functional decline cachexia poor oral intake and weight loss, BMI 21.6 kg/m2 Discharge Disposition: Home Discharge Instruct/Medications Diet: Regular Activity: No Restrictions, As Tolerated Follow Up/Referral: Follow up with discharge clinic in 1-2 weeks Medications: As per EMR Scheduled Clotrimazole (Lotrimin Af), 1 APPLIC TOP BID Miscellaneous Medications Gabapentin (Gabapentin), 300 MG PO, (Reported) Hydrocodone-Acetaminophen (Hydrocodone Bitartrate/AC 10-325 mg), 1 TAB PO, (Reported) Discharge Statement: "Patient was advised to return to the ER or call 911 if any headaches, dizziness, shortness of breath, chest pain, abdominal pain, bleeding, fevers, or worsening of medical condition. Patient was counseled about treatment plan, medications, possible side effects, patientverbalized understanding. All questions were answered to the best of my ability. This discharge took greater then 30 minutes in planning, reviewing documentation, counseling the patient, and discussing with other team members." ASSESSMENT ASSESSMENT Assessment generalized weakness with falls and inability to ambulate WM PERKINS RESIDENT Nov 27, 2024 14:29
[2024-11-28 16:07] LABS: Anti-Nuclear Antibody Direct Negative (Negative)
== END 2024-11-27 18:35 | disposition home or self-care (01) | DRG 48 ==
LOC: ER 06:29 → EDBD 06:29 → OVERFLOW 21:07 → CENTRAL 23:59
PROVIDERS: ADMIT Student in an Organized Health Care Education/Training Program; ATTEND Student in an Organized Health Care Education/Training Program
DX: E11.42 Type 2 diabetes mellitus with diabetic polyneuropathy (principal); R64 Cachexia; E43 Unspecified severe protein-calorie malnutrition; B35.3 Tinea pedis; F15.90 Other stimulant use, unspecified, uncomplicated; F11.90 Opioid use, unspecified, uncomplicated; F17.200 Nicotine dependence, unspecified, uncomplicated; E11.319 Type 2 diabetes mellitus with unspecified diabetic retinopathy without macular edema; L30.9 Dermatitis, unspecified; G89.29 Other chronic pain; M54.12 Radiculopathy, cervical region; I10 Essential (primary) hypertension; F19.90 Other psychoactive substance use, unspecified, uncomplicated; Z68.21 Body mass index [BMI] 21.0-21.9, adult; Z79.899 Other long term (current) drug therapy
CPT/HCPCS: 36415; 70450; 71046; 80053; 80307; 81001; 82607; 82746; 83036; 83735; 83880; 84100; 84443; 84630; 85025; 85379; 85610; 85652; 85730; 86038; 86141; 86703; 86803; 87340; 93005; 93925; 97163; G0378